=== PATIENT | male | born 1980 ===

== ENCOUNTER 2021-02-09 09:49 | Outpatient (CLI) | payer OTHER, SELFPAY ==
[2021-02-09] MEDS: Albuterol HFA 18 GM 200 PUFF INH IH (14:06)
[2021-02-09] MEDS: Inhaler, Assist Device 1 EACH MC (14:07)
--- NOTE | 2021-02-09 18:48 | W.PFT ---
Date of service: 02/09/21 Time of Service: 01:15 Pulmonary Function Test Result Interpretation Spirometry: No evidence of obstructive airways disease, no bronchodilator response Impression Normal spirometry Clinical Correlation therefore is recommended.
== END 2021-02-09 09:50 | disposition home or self-care (01) ==
LOC: RT 02-14 09:50
PROVIDERS: Visit Provider Orthopaedic Surgery
DX: R06.02 Shortness of breath (principal)
CPT/HCPCS: 94060